=== PATIENT | male | born 1975 | race Caucasian/White ===

== ENCOUNTER 2018-04-05 09:22 | Outpatient (CLI) | payer OTHER ==
[2018-04-05] MEDS ORDERED: BUFFERED LIDOCAINE 10 ML SYRINGE ONE (09:44)
[2018-04-05] MEDS ORDERED: IOTHALAMATE MEGLUMINE 50 ML VIAL ONE (09:44)
[2018-04-05] MEDS ORDERED: GADOPENTETATE DIMEGLUMINE 5 ML VIAL IVP ONE ×2 (09:45→10:52)
[2018-04-05] MEDS ORDERED: IOTHALAMATE MEGLUMINE 50 ML VIAL IVP ONE (10:52)
[2018-04-05] MEDS ORDERED: BUFFERED LIDOCAINE 10 ML SYRINGE IU ONE (10:52)
--- NOTE | 2018-04-05 11:23 | XRAY Report ---
Reason: PAIN IN RIGHT SHOULDER Procedure Date: 04/05/2018 Accession Number: [id number] / [id number] Procedure: FL - Arthrogram Needle Placement CPT Code: FULL RESULT: EXAM: RIGHT SHOULDER ARTHROGRAPHIC INJECTION WITH FLUOROSCOPIC GUIDANCE EXAM DATE: 04/05/2018 10:38 AM. CLINICAL HISTORY: Pain in right shoulder. COMPARISON: None. TECHNIQUE: The risks, benefits, and alternatives of the procedure were discussed with the patient. All questions were answered. Written and verbal consent were obtained. The glenohumeral joint was marked under fluoroscopy and prepped and draped in a sterile manner. Local anesthesia was performed with 1% lidocaine. A 22-gauge needle was then inserted into the glenohumeral joint. 10 mL of a solution containing 25% 1% lidocaine, 25% iodinated contrast, and a 1:200 dilution of gadolinium contrast in sterile saline was then injected. The needle was removed without immediate complication. Other: None. Fluoroscopy Time: 0.2 minutes. Number of Images: 1. FINDINGS: Bones and joints: No fracture or subluxation. Injection: Fluoroscopic images demonstrate needle placement and contrast in the glenohumeral joint. Contrast is seen pooling in the region of the coracoid process. IMPRESSION: Successful fluoroscopically guided arthrographic injection of the shoulder. [facility]
--- NOTE | 2018-04-05 15:49 | MRI Report ---
Reason: PAIN IN RIGHT SHOULDER Procedure Date: 04/05/2018 Accession Number: [id number] / [id number] Procedure: MRI - Arthrogram Shoulder RT CPT Code: FULL RESULT: EXAM: RIGHT SHOULDER MRI ARTHROGRAM WITH CONTRAST EXAM DATE: 04/05/2018 10:37 AM. CLINICAL HISTORY: Pain in right shoulder. COMPARISON: Arthrogram needle placement 04/05/2018 10:35 AM. TECHNIQUE: Multiplanar, multisequence T1-weighted and fluid-sensitive sequences of the shoulder after an arthrographic injection of dilute gadolinium, dictated under a separate exam. Other: None. FINDINGS: Acromioclavicular Region: The acromion is type II. Mild degenerative changes acromioclavicular joint. The coracoacromial and coracoclavicular ligaments are intact. There is no contrast or fluid in the subacromial/subdeltoid bursa. Glenohumeral Region: No subluxation. No loose bodies. The articular cartilage is unremarkable. The glenohumeral ligaments and joint capsule are unremarkable. Bone Marrow: Cystic degenerative changes posterior aspect greater tuberosity. Labrum: Superior labrum tear with posterior extension and posterior superior labrum paralabral contrast cysts. Biceps Tendon: The long head of the biceps tendon and biceps paxton are intact. Musculature/Rotator Cuff: Focal globular calcification distal supraspinous tendon 1.3 cm x 1.0 cm consistent with supraspinatus calcific tendinosis. Negative for infraspinatus tendon tear. Negative for subscapularis tendon tear. The supraspinatus tendon is negative for contrast signal defect. Other: The subcutaneous tissues are unremarkable. IMPRESSION: 1. Negative for rotator cuff tear. 2. Distal supraspinatus calcific tendinosis. 3. Superior and posterior superior labrum tear. [facility] MUSCULOSKELETAL RADIOLOGY SECTION
== END 2018-04-05 09:23 | disposition home or self-care (01) ==
LOC: DI 09:22
PROVIDERS: ATTEND Orthopaedic Surgery
DX: S43.491A Other sprain of right shoulder joint, initial encounter (principal); M25.811 Other specified joint disorders, right shoulder
CPT/HCPCS: 23350; 73222; 77002; Q9961

== ENCOUNTER 2018-05-20 09:11 | Day surgery (SDC) | payer OTHER ==
[2018-05-20] MEDS ORDERED: cefTRIAXone 2 GM VIAL ONE (09:22)
[2018-05-20] MEDS ORDERED: EPINEPHrine 1 MG/ML AMP ONE (09:34)
[2018-05-20] MEDS ORDERED: BUPIVACAINE 0.25%-EPI 1:200000 PF 30 ML VIAL ONE (09:34)
[2018-05-20] MEDS ORDERED: LACTATED RINGERS 1,000 ML IV ONE ×2 (09:40→12:34)
--- NOTE | 2018-05-20 11:05 | ANESTHESIA ---
Pre-Anesthesia VS, & Labs - Diagnosis Right shoulder biceps tendinitis, SLAP tear - Procedure Right shoulder arthroscopy subacromial decompression biceps tenodesis, rotator cuff debridement vs repair Vital Signs: Temp Pulse Resp BP Pulse Ox 37.0 C 79 18 143/79 H 96 05/20/18 09:31 05/20/18 09:31 05/20/18 09:31 05/20/18 09:31 05/20/18 09:31 Height 5 ft 8 in Weight (kg) 95 kg - NPO >8 hours Home Medications and Allergies Home Medications: Ambulatory Orders raNITIdine [Zantac] 150 mg PO DAILY 05/19/18 Acetaminophen [Tylenol] 05/20/18 Celecoxib [Celebrex] 200 mg PO 05/20/18 Docusate Sodium 250Mg Capsule [Colace 250Mg Capsule] 05/20/18 Ibuprofen [Motrin] 800 mg PO Q8H PRN 05/20/18 raNITIdine [Zantac] 150 mg PO DAILY 05/19/18 Acetaminophen [Tylenol] 05/20/18 Celecoxib [Celebrex] 200 mg PO 05/20/18 Docusate Sodium 250Mg Capsule [Colace 250Mg Capsule] 05/20/18 Ibuprofen [Motrin] 800 mg PO Q8H PRN 05/20/18 Allergies/Adverse Reactions: Allergies Allergy/AdvReac Type Severity Reaction Status Date / Time No Known Drug Allergies Allergy Verified 05/19/18 09:54 Anes History & Medical History - Anesthetic History Anesthesia Complications: reports: No previous complications - Medical History Cardiovascular: reports: None Pulmonary: reports: None Gastrointestinal: reports: GERD (occasional with spicy food, controlled with meds), Chronic constipation Urinary: reports: None Neuro: reports: None Musculoskeletal: reports: Other Endocrine/Autoimmune: reports: None Blood Disorders: reports: None Skin: reports: None Smoking Status: Former smoker - Surgical History General: Other (vasectomy reversal) Exam General: Alert, Oriented x3, Cooperative, No acute distress Dental: WNL Mouth Openin Fingerbreadth Neck Mobility: Normal Mallampati classification: II Thyromental Distance: 4-6 cm Mental/Cognitive Status: Alert/Oriented X3, Normal for patient Plan Anesthesia Type: General, Interscalene Block (right) Consent for Procedure(s) Verified and Reviewed: Yes Code Status: Attempt Resuscitation ASA classification: 2-Mild systemic disease Is this case an emergency?: No
[2018-05-20] MEDS ORDERED: fentaNYL 100 MCG/2 ML VIAL ONE (11:18)
[2018-05-20] MEDS ORDERED: MIDAZOLAM 2 MG/2 ML VIAL ONE (11:18)
[2018-05-20] MEDS ORDERED: BUPIVACAINE 0.25% PF 10 ML VIAL ONE (12:16)
[2018-05-20] MEDS ORDERED: BUPIVACAINE 0.25% PF 10 ML VIAL SUBQ ONE ×2 (12:22)
[2018-05-20] MEDS ORDERED: ROPIVACAINE 0.5% PF 20 ML AMPULE EP ONE (12:24)
[2018-05-20] MEDS ORDERED: KETOROLAC 30 MG/ML VIAL IVP ONE (12:24)
[2018-05-20] MEDS ORDERED: PROPOFOL 200 MG/20 ML VIAL IVP ONE (12:24)
[2018-05-20] MEDS ORDERED: NEOSTIGMINE 1 MG/1 ML 10 ML MDV IVP ONE (12:24)
[2018-05-20] MEDS ORDERED: fentaNYL 100 MCG/2 ML VIAL IVP ONE (12:24)
[2018-05-20] MEDS ORDERED: GLUCAGON 1 MG/ML VIAL IM ONE (12:24)
[2018-05-20] MEDS ORDERED: DEXAMETHASONE 4 MG/ML VIAL IVP ONE (12:24)
[2018-05-20] MEDS ORDERED: ONDANSETRON 4 MG/2 ML VIAL IVP ONE (12:24)
[2018-05-20] MEDS ORDERED: ePHEDrine 50 MG/ML VIAL IVP ONE (12:24)
[2018-05-20] MEDS ORDERED: ONDANSETRON 4 MG/2 ML VIAL IVP PRN (14:29)
--- NOTE | 2018-05-20 14:35 | OPERATIVE REPORT ---
Operative Report - General Procedure Date: 05/20/18 Planned Procedure: Right shoulder arthroscopy, open subpectoral biceps tenodesis Pre-Op Diagnosis: Right shoulder SLAP tear, biceps tendinitis Procedure Performed: Right shoulder arthroscopy, open subpectoral biceps tenodesis Post Op Diagnosis: Shoulder SLAP tear biceps tendinitis - Procedure Note Primary Surgeon: MAGED CHANDLER Secondary Surgeon: BRAYDON MARCIAL Anesthesia Technique: General ET tube, Regional block Estimated Blood Loss (mL): 15 Complications: None - Other Other Information/Narrative: DIAGNOSTIC SHOULDER SCOPE - BEACH CHAIR DETAILED PROCEDURE: Right shoulder arthroscopy, open subpectoral biceps tenodesis IMPLANTS: Arthrex fiber tack POSTOPERATIVE PLAN: 0-2 weeks-Sling at all times. Pendulum exercises 5 times per day. 2-6 weeks-Shoulder passive and active range of motion without limitations. No active flexion of the elbow or supination of the wrist, no activation of the biceps 6-8 weeks-Discontinue sling, start active motion of the biceps, okay for light resistance band training. 8-12 weeks-okay to start strengthening the biceps, continue strengthening the shoulder focusing on rotator cuff and scapular stabilizers per protocol. 16 weeks and beyond-Introduce dynamic activities. EXAMINATION UNDER ANESTHESIA: ROM: Forward flexion 180 degrees, abduction 60 degrees Anterior load and shift: 1+ Posterior load and shift: 1+ Inferior sulcus: Negative ARTHROSCOPIC FINDINGS: Rotator interval: Mild fraying at the medial sling Biceps tendon & SLAP: Type II SLAP tear, synovitis of the biceps tendon Subscapularis: Intact Rotator Cuff: Intact HAGL: No Labrum: SLAP tear as above Glenoid Cartilage: Grade 1 and 2 changes superiorly, posterior inferiorly Humeral Head Cartilage: Grade 2 and 3 changes posterior superiorly INDICATION FOR SURGERY: The 43-year-old [id number] male with a long- standing history of right shoulder pain that may become worse recently. He reports that it started approximately 5 years ago after playing [employer], he feels that he reinjured the shoulder last June while snowboarding. He underwent an ultrasound-guided injection of the biceps tendon which provided good but temporary relief of the symptoms. Nonoperative managment failed to resolve symptoms. The risks, benefits, and alternatives were discussed. Risks included pain, bleeding, infection, damage to nearby structures, lack of symptom relief, implant complications, stiffness, need for further surgeries, DVT, PE, stroke, and even . He signed a written consent form. PROCEDURE IN DETAIL: The patient was met in the preoperative holding on the day of the procedure. Operative extremity was signed. Consent was verified. They desired to proceed. Regional anesthesia was obtained in the preoperative area. They were brought to the operating room and surrendered to anesthesia. Once general anesthesia was obtained they were placed in the beach chair position. A padded kidney pad was placed. The head was secured with the neck in a neutral position. A surgical timeout was held to confirm the patient procedure, identity, procedure, laterality, allergies, images, and antibiotics. All were in agreement we proceeded. A standard diagnostic arthroscopy was performed utilizing posterior and anterosuperior portals. The anterosuperior portal was created under direct visualization and localized with a spinal needle. The 7 mm cannula was placed anteriorly. The findings of the diagnostic arthroscopy can be found above. MINI OPEN BICEPS TENODESIS: A 5 cm incision was made near the axillary fold centered over the pectoralis major tendon. Electrocautery was used to obtain hemostasis. The fascia was opened with dissection scissors. Blunt digital dissection was used to identify the intertubercular groove just under the pector suleiman major tendon. The long head of the biceps tendon was visualized within this interval. The short head of the biceps was retracted with my finger and the right angle was used to deliver the tendon of the long head of the biceps out of the wound. A davidson elevator was then used to debride all synovial tissue from the intertubercular groove. A fibertack was placed high within the groove. Both limbs of the fibertack were pulled on and it was well fixed. I then whipstitched the biceps tendon starting 2 cm proximal to the musculotendinous junction down to the musculotendinous junction and back up to the same 2 cm location with a single limb of the suture tack. The other suture was placed once through the tendon at the 2 cm location. I then cut all excess tendon off. The suture limb that was passed the single time was then pulled on and this reduced the tendon nicely into the groove. The elbow was fully straightened and there was no excess tension on the repair site. I then tied 7 reverse half hitches alternating to secure the tendon in its place. The wound was then irrigated copiously. The portal sites were then closed with 3-0 Monocryl buried. Open incisions were closed with 2-0 Vicryl in the dermis and a running 3-0 Monocryl in the skin. Mastisol and Steri-Strips were applied. 15 mL of quarter percent Marcaine plain were injected along the biceps tenodesis incision. A sterile dressing and a sling was applied. A sling was placed. The patient was awakened and transferred to the recovery room.
[2018-05-20] MEDS ORDERED: ONDANSETRON 4 MG/2 ML VIAL ONE (15:04)
--- NOTE | 2018-05-20 16:29 | ANESTHESIA PROCEDURE NOTE ---
Consent for Procedure(s) Verified and Reviewed: Yes Height and Weight: Height 5 ft 8 in Weight (kg) 95 kg Vital Signs: Temp Pulse Resp BP Pulse Ox 36.2 C L 114 H 18 129/67 99 05/20/18 15:57 05/20/18 15:57 05/20/18 15:57 05/20/18 15:57 05/20/18 15:57 Allergies No Known Drug Allergies Allergy (Verified 05/19/18 09:54) Requesting Provider: Dr. Palencia Location: Right ISB ASA classification: 2-Mild systemic disease Anes. Monitoring and Equipment: Non-invasive BP, Pulse oximetery Anes. Procedure Start Time: 11:20 Anes. Procedure Stop Time: 11:31 Procedure Notes: Informed consent obtained. Right ISB requested by Dr. Palencia for post op pain control. Patient was given a total of 100mcg fentanyl and 2mg versed for comfort. Meaningful contact remained throughout procedure. Patient's right neck was prepped and time out procedure completed. The right brachial plexus was identified under ultrasound and a 22G blunt stimiplex needle was inserted and directed toward the nerve bundle. A total of 30 ml of 0.5% ropivicaine plus 6mg decadron was injected around nerve bundle with adequate spread noted. Patient tolerated procedure well. Full evaluation is pending.
[2018-05-20 16:43] LABS: CALCIUM 8.9 mg/dL (8.5-10.3)
[2018-05-20] MEDS: oxyCODONE 5 MG TABLET PO PRN ×2 (16:51→20:25)
[2018-05-20] MEDS ORDERED: MORPHINE 2 MG/ML CARPUJECT IVP PRN (16:52)
[2018-05-20] MEDS ORDERED: oxyCODONE 5 MG TABLET ONE (16:54)
[2018-05-20] MEDS ORDERED: NITROGLYCERIN SL 0.4 MG TABLET SL PRN (17:10)
[2018-05-20] MEDS ORDERED: NITROGLYCERIN SL 0.4 MG TABLET SL ONE (17:16)
[2018-05-20] MEDS: ASPIRIN CHEW 81 MG TABLET PO ONE ×2 (17:18→18:55)
[2018-05-20] MEDS ORDERED: ASPIRIN CHEW 81 MG TABLET ONE (17:18)
--- NOTE | 2018-05-20 17:44 | XRAY Report ---
Reason: chest pain, r/o pneumothorax Procedure Date: 05/20/2018 Accession Number: [id number] / [id number] Procedure: XR - Chest 1 View X-Ray CPT Code: 07651 FULL RESULT: EXAM: CHEST RADIOGRAPHY EXAM DATE: 05/20/2018 04:58 PM. CLINICAL HISTORY: Chest pain, r/o pneumothorax. COMPARISON: None. TECHNIQUE: 1 view. FINDINGS: Lungs/Pleura: No dense consolidation. No large effusion or pneumothorax. No pulmonary edema. Low lung volumes. Elevation of the right hemidiaphragm with mild right base atelectasis. Mediastinum: Heart and mediastinal contours are unremarkable. Other: None. IMPRESSION: No acute radiographic pulmonary abnormalities. [facility]
--- NOTE | 2018-05-20 18:07 | CONSULTATION NOTE ---
Referring Provider Name of Referring Provider:: Dr. Cade Hugo Consult Date: 05/20/18 Chief Complaint - Chief Complaint Chief Complaint: chest pain History of Present Illness - Admitted From Admitted From:: SDS - History Obtained From Records Reviewed: Yes History obtained from: Patient, EMR Exam Limitations: None - History of Present Illness HPI Comment/Other: Lavell Oleary is a 43 year old male with PMH significant for GERD in which he does not take daily medication for, chronic constipation, and right shoulder pain since 2012. Today, he underwent a right shoulder arthroscopy with open subpectoral bicep tenodesis with Dr. Cade Arita. Operation was uneventful. Post-operatively the patient is tachycardic in 110s and complaining of chest pain with breathing. The pain is over his left breast. It does not radiate. He is unable to describe the feeling of the pain, only that it is 'hard to breathe when I inhale'. He reports this discomfort as a 5/10, and states that he is unable to take a deep breath because of the pain. It does not feel like his previous symptoms of GERD. When his left breast is touched, it only mildly reproduces the pain. The pain increases when he coughs. EKG was obtained with left axis deviation and without ischemic changes. Troponin <0.04. TSH and Mg wnl. CXR negative for PTX. He was given nitro, morphine and a full dose aspirin. Upon my examination, he continues to complain of discomfort with breathing. He was unable to tell me if the nitro or aspirin relieved his chest discomfort. He does not have any cardiac history. No history of HTN, hyperlipidemia, or DM. He does not have a family history of heart disease that he is aware of. History - Past Medical History Cardiovascular: reports: None Respiratory: reports: None Neuro: reports: None Endocrine/Autoimmune: reports: None GI: reports: GERD (occasional with spicy food, controlled with meds), Chronic constipation : reports: None HEENT: reports: None Psych: reports: None Musculoskeletal: reports: Other Derm: reports: None MRSA Hx?: No - Past Surgical History General: reports: Other (vasectomy reversal) - Substance History Use: Uses substance without health or social issues: NONE Meds/Allgy - Home Medications Home Medications: Ambulatory Orders Medication Instructions Recorded Confirmed raNITIdine [Zantac] 150 mg PO DAILY 05/19/18 05/20/18 Acetaminophen [Tylenol] 05/20/18 Celecoxib [Celebrex] 200 mg PO 05/20/18 05/20/18 Docusate Sodium 250Mg Capsule 05/20/18 [Colace 250Mg Capsule] Ibuprofen [Motrin] 800 mg PO Q8H PRN 05/20/18 05/20/18 - Allergies Allergies/Adverse Reactions: Allergies Allergy/AdvReac Type Severity Reaction Status Date / Time No Known Drug Allergies Allergy Verified 05/19/18 09:54 Review of Systems - Constitutional Constitutional: denies: Fatigue, Fever, Chills - Cardiovascular Cariovascular: reports: Chest pain. denies: Irregular heart rate, Palpitations, Syncope, Exertional dyspnea, Orthopnea - Respiratory Respiratory: reports: SOB at rest (shortness of breath with inspiration), Pleuritic pain. denies: Cough - Gastrointestinal Gastrointestinal: denies: Diarrhea, Nausea, Vomiting - All Other Systems All Other Systems: reports: Reviewed and negative Exam - Vital Signs Vital Signs: Vital Signs x48h Temp Pulse Resp BP Pulse Ox 05/20/18 17:28 122 H 21 128/66 93 05/20/18 17:15 36.8 C 114 H 20 134/72 H 95 05/20/18 16:59 36.7 C 114 H 23 134/72 H 95 05/20/18 16:28 36.5 C 112 H 21 132/80 H 96 05/20/18 15:57 36.2 C L 114 H 18 129/67 99 05/20/18 15:29 105 H 17 134/68 H 94 05/20/18 15:00 36.2 C L 95 14 142/75 H 93 05/20/18 14:45 37.0 C 92 18 128/66 94 05/20/18 14:32 36.8 C 81 13 126/70 91 L 05/20/18 14:30 36.0 C L 100 18 132/78 H 95 05/20/18 14:25 36.0 C L 96 14 136/74 H 93 05/20/18 14:20 80 16 139/74 H 93 05/20/18 14:15 77 14 141/78 H 93 05/20/18 14:10 36.0 C L 96 18 146/84 H 95 05/20/18 14:05 65 14 128/69 99 05/20/18 14:00 66 15 129/71 99 05/20/18 13:55 36.1 C L 65 16 124/68 99 05/20/18 13:50 70 17 143/92 H 100 05/20/18 13:48 36.4 C L 79 17 148/84 H 99 - Physical Exam General Appearance: positive: No acute distress, Alert Eyes Bilateral: positive: Normal inspection, PERRL, EOMI ENT: positive: ENT inspection nml, No signs of dehydration Neck: positive: Nml inspection, Trachea midline Respiratory: positive: No respiratory distress, Breath sounds nml, Other (mild tenderness to palpation left chest) Cardiovascular: positive: No murmur, No gallop, Tachycardia Peripheral Pulses: positive: 2+ Abdomen: positive: Non-tender, No organomegaly, Nml bowel sounds, No distention Skin: positive: Warm, Dry Extremities: positive: Nml appearance, Other (right arm in bandage/sling) Neurologic/Psychiatric: positive: Oriented x3, CN's nml (2-12), Motor nml, Sensation nml, Mood/affect nml Conclusion/Plan - Diagnosis Diagnosis: atypical chest pain - Plan Plan: Patient presents with atypical chest pain. His EKG and first set of troponins are negative. He does not have cardiac risk factors or family history of cardiac disease, making ACS less likely. DDx: pleuritic chest pain, GERD, post-op atelectasis, aspiration pneumonitis related to intubation, costochondritis, pain related to drug induced tachycardia, and pulmonary embolism. Pain is mildly reproducible to palpation. Pain occurs with inspiration. On room air. Denies cough. Recommendations: Obtain another troponin level at 1930 Incentive spirometer for atelectasis seen on x-ray Flexeril and ibuprofen for pleuritic pain (orders have been placed) If pain unrelieved with the above or patient becomes hypoxic, recommend obtaining CTPE to r/o PE. These recommendations were discussed with Dr. Cade Arita. Thank you for this consult. We will sign off. Please re-consult as needed. - Lab Results Lab results reviewed: Yes Fish Bones: 05/20/18 16:28 Other Lab Results: Laboratory Tests 05/20/18 05/20/18 05/20/18 16:28 16:28 16:28 Sodium 138 Potassium 3.9 Chloride 105 Carbon Dioxide 24 Anion Gap 9.0 BUN 16 Creatinine 1.0 Estimated GFR (MDRD) 81 L Glucose 119 H Calcium 8.9 Magnesium 1.9 Troponin I < 0.04 TSH 05/20/18 16:28 Sodium Potassium Chloride Carbon Dioxide Anion Gap BUN Creatinine Estimated GFR (MDRD) Glucose Calcium Magnesium Troponin I TSH 1.02 - Diagnostic Imaging Results Diagnostic Imaging Results: positive: Final report reviewed Diagnostic Imaging Results Comments: CXR -- No acute radiographic pulmonary abnormalities - EKG Results EKG Interpreted Independently: Yes EKG Comparison: Old EKG unavailable EKG Findings: Sinus tachycardia with left axis deviation
[2018-05-20 20:35] LABS: CALCIUM 8.9 mg/dL (8.5-10.3)
[2018-05-20] MEDS: CYCLOBENZAPRINE 10 MG TABLET PO PRN (20:38)
[2018-05-20 20:56] LABS: BASOPHILS # (AUTO) 0.1 10^3/uL (0.0-0.1); BASOPHILS % (AUTO) 0.4 %; EOSINOPHILS % (AUTO) 0.1 %; HGB - HEMOGLOBIN 14.6 g/dL (14.0-18.0); LYMPHOCYTES # (AUTO) 0.9 10^3/uL (1.5-3.5); LYMPHOCYTES % (AUTO) 7.3 %; MEAN CORPUSCULAR HEMOGLOBIN 29.9 pg (27.0-31.0); MEAN CORPUSCULAR HGB CONC 33.4 g/dL (32.0-36.0); MEAN CORPUSCULAR VOLUME 89.4 fL (80.0-94.0); MEAN PLATELET VOLUME 7.7 fL (7.4-11.4); MONOCYTES # (AUTO) 0.6 10^3/uL (0.0-1.0); NEUTROPHILS # (AUTO) 10.4 10^3/uL (1.5-6.6); NEUTROPHILS % (AUTO) 87.2 %; PLT - PLATELET COUNT 240 10^3/uL (130-450); RED BLOOD COUNT 4.89 10^6/uL (4.70-6.10); RED CELL DISTRIBUTION WIDTH 14.1 % (12.0-15.0); WHITE BLOOD COUNT 11.9 x10^3/uL (4.8-10.8)
[2018-05-20] MEDS: ACETAMINOPHEN 325 MG TABLET PO SCH (21:35)
[2018-05-20] MEDS: IBUPROFEN 600 MG TABLET PO SCH (21:36)
[2018-05-20] MEDS ORDERED: SODIUM CHLORIDE 0.9% 1,000 ML IV SCH (23:45)
--- NOTE | 2018-05-20 23:54 | PROVIDER PROGRESS NOTE ---
Medical Manager Note - Medical Manager Note Medical Manager Note: The Orthopedic doctor called me and we discussed his case: He was given NSAIDs for pleuritic CP. His troponins have been non-detectable x2 and EKG showed no acute ischemia. BP has dropped to 99 systolic (but he got narcotics) and he has been persistently tachycardic this evening, despite fairly good pain control. He had not urinated til just recently. Imp: Probable volume depletion R/O PE Plan: Will start iv fluids Will obtain a CTA of chest to R/O PE
[2018-05-21] MEDS ORDERED: SODIUM CHLORIDE FLUSH 0.9% 10 ML SYRINGE ONE (00:45)
[2018-05-21] MEDS: oxyCODONE 5 MG TABLET PO PRN ×2 (00:45→06:55)
[2018-05-21] MEDS: ACETAMINOPHEN 325 MG TABLET PO SCH ×3 (00:45→09:19)
[2018-05-21] MEDS ORDERED: IOPAMIDOL-300 100 ML VIAL ONE (01:22)
[2018-05-21] MEDS ORDERED: IOPAMIDOL-300 100 ML VIAL IVP ONE (01:45)
--- NOTE | 2018-05-21 02:08 | CT Report ---
Reason: pleuritic CP, tachy, eval for PE Procedure Date: 05/21/2018 Accession Number: [id number] / [id number] Procedure: CT - ANGIO CHEST W/WO CPT Code: FULL RESULT: EXAM: CT ANGIOGRAM CHEST EXAM DATE: 05/21/2018 01:48 AM. CLINICAL HISTORY: Pleuritic chest pain. Tachycardia. COMPARISON: None. TECHNIQUE: Routine helical imaging was performed through the chest in the pulmonary arterial phase. IV Contrast: ISOVUE 300 80mL. Reconstructions: Coronal 3-D MIP reconstructions.Sagittal and coronal. In accordance with CT protocol optimization, one or more of the following dose reduction techniques were utilized for this exam: automated exposure control, adjustment of mA and/or KV based on patient size, or use of iterative reconstructive technique. FINDINGS: Pulmonary Arteries: Diagnostic quality: Suboptimal through the segmental arteries. There is moderate enhancement of the pulmonary arteries. Some images are degraded due to motion artifact. No obvious pulmonary emboli are seen. No evidence of right heart strain. Lungs/Pleura: Elevated right hemidiaphragm. Moderate atelectasis or consolidation in the right lower lobe. Mild atelectasis at the left base. No pleural effusion seen. No pneumothorax. Mediastinum: Heart size upper normal. No lymphadenopathy is seen. Thoracic Aorta: No aneurysm or dissection. Upper Abdomen: Fatty liver. Upper normal size of the spleen. Other: None. IMPRESSION: 1. Mildly suboptimal assessment of the pulmonary arteries due to technical factors. No obvious pulmonary emboli. 2. Elevated right hemidiaphragm with moderate atelectasis or consolidation in the right lower lobe. Mild atelectasis at the left base. 3. Heart size upper normal. 4. Fatty liver with borderline size of the spleen. [facility]
[2018-05-21] MEDS: IBUPROFEN 600 MG TABLET PO SCH (06:55)
[2018-05-21 07:05] VITALS: BP 119/63
[2018-05-21 07:06] LABS: BASOPHILS # (AUTO) 0.1 10^3/uL (0.0-0.1); BASOPHILS % (AUTO) 0.6 %; EOSINOPHILS % (AUTO) 0.3 %; HGB - HEMOGLOBIN 13.2 g/dL (14.0-18.0); LYMPHOCYTES # (AUTO) 1.9 10^3/uL (1.5-3.5); MEAN CORPUSCULAR HGB CONC 33.4 g/dL (32.0-36.0); MEAN CORPUSCULAR VOLUME 89.9 fL (80.0-94.0); MEAN PLATELET VOLUME 7.3 fL (7.4-11.4); MONOCYTES # (AUTO) 0.9 10^3/uL (0.0-1.0); MONOCYTES % (AUTO) 8.6 %; NEUTROPHILS # (AUTO) 7.6 10^3/uL (1.5-6.6); NEUTROPHILS % (AUTO) 72.5 %; PLT - PLATELET COUNT 226 10^3/uL (130-450); RED BLOOD COUNT 4.38 10^6/uL (4.70-6.10); RED CELL DISTRIBUTION WIDTH 14.3 % (12.0-15.0); WHITE BLOOD COUNT 10.5 x10^3/uL (4.8-10.8)
--- NOTE | 2018-05-21 08:44 | PROVIDER PROGRESS NOTE ---
Subjective - Prog Note Date Prog Note Date: 05/21/18 Prog Note Time: 08:41 - Subjective Pt reports feeling: Improved Subjective: 43-year-old [id number] male one day status post right shoulder arthroscopy and open subpectoral biceps tenodesis. Postoperative course, gated by onset of chest pain while in recovery. EKG with nonspecific changes. Further cardiac workup including a sterile to troponin x2, as well as a CT PE protocol was negative for thrombus, aortic dissection, pericardial effusion, or tamponade. There was some elevation of the right hemidiphragm and atelectasis. Pain is improved overnight with less pain on inspiration. Right shoulder pain is well controlled, block still in effect although wearing off with return of some sensation and motor function to the distal right upper extremity. He denies fever or chills. Current Medications - Current Medications Current Medications: Oxycodone, acetaminophen, Flexeril, Motrin, Pepcid Objective - Vital Signs/Intake & Output Vital Signs: Vital Signs x48h Temp Pulse Pulse Resp BP BP Pulse Ox 05/21/18 07:03 36.8 C 90 16 119/63 96 05/21/18 04:32 36.9 C 106 H 20 118/61 96 05/21/18 00:47 36.5 C 103 H 16 105/56 L 95 Intake & Output: Intake & Output 05/18/18 05/19/18 05/20/18 05/21/18 23:59 23:59 23:59 23:59 Intake Total 1400 Output Total 15 Balance 1385 - Objective General Appearance: positive: No acute distress, Alert Eyes Bilateral: positive: Normal inspection Neck: positive: Nml inspection Respiratory: positive: Chest non-tender (Less tenderness with palpation at the left sternal costal junction than on previous exam), No respiratory distress Peripheral Pulses: 2+ Radial (R) Abdomen: positive: Non-tender Extremities: positive: Other (Right upper extremity in sling with postoperative dressing applied, dressing is intact without strikethrough. Motor function to EPL FPL and intrinsics, returning sensation in median radial and ulnar distribution. Palpable radial pulse capillary refill less than 2 seconds.) Neurologic/Psychiatric: positive: Oriented x3, Mood/affect nml. negative: Slurred/abnml speech, Depressed mood/affect - Lab Results Fish Bones: 05/21/18 07:00 05/20/18 20:26 Other Labs: Lab Results x24hrs 05/21/18 05/20/18 05/20/18 Range/Units 07:00 20:50 20:26 WBC 10.5 11.9 H (4.8-10.8) x10^3/uL RBC 4.38 L 4.89 (4.70-6.10) 10^6/uL Hgb 13.2 L 14.6 (14.0-18.0) g/dL Hct 39.4 L 43.7 (42.0-52.0) % MCV 89.9 89.4 (80.0-94.0) fL MCH 30.0 29.9 (27.0-31.0) pg MCHC 33.4 33.4 (32.0-36.0) g/dL RDW 14.3 14.1 (12.0-15.0) % Plt Count 226 240 (130-450) 10^3/uL MPV 7.3 L 7.7 (7.4-11.4) fL Neut # (Auto) 7.6 H 10.4 H (1.5-6.6) 10^3/uL Lymph # (Auto) 1.9 0.9 L (1.5-3.5) 10^3/uL Placer # (Auto) 0.9 0.6 (0.0-1.0) 10^3/uL Eos # (Auto) 0.0 0.0 (0.0-0.7) 10^3/uL Baso # (Auto) 0.1 0.1 (0.0-0.1) 10^3/uL Absolute Nucleated RBC 0.00 0.01 x10^3/uL Nucleated RBC % 0.0 0.1 /100WBC Sodium 137 (135-145) mmol/L Potassium 4.2 (3.5-5.0) mmol/L Chloride 101 (101-111) mmol/L Carbon Dioxide 25 (21-32) mmol/L Anion Gap 11.0 (6-13) BUN 14 (6-20) mg/dL Creatinine 1.0 (0.6-1.2) mg/dL Estimated GFR (MDRD) 81 L (>89) Glucose 124 H (70-100) mg/dL Calcium 8.9 (8.5-10.3) mg/dL Magnesium (1.7-2.8) mg/dL Troponin I (<0.49) ng/mL TSH (0.34-5.60) uIU/mL 05/20/18 05/20/18 05/20/18 Range/Units 19:10 16:28 16:28 WBC (4.8-10.8) x10^3/uL RBC (4.70-6.10) 10^6/uL Hgb (14.0-18.0) g/dL Hct (42.0-52.0) % MCV (80.0-94.0) fL MCH (27.0-31.0) pg MCHC (32.0-36.0) g/dL RDW (12.0-15.0) % Plt Count (130-450) 10^3/uL MPV (7.4-11.4) fL Neut # (Auto) (1.5-6.6) 10^3/uL Lymph # (Auto) (1.5-3.5) 10^3/uL Placer # (Auto) (0.0-1.0) 10^3/uL Eos # (Auto) (0.0-0.7) 10^3/uL Baso # (Auto) (0.0-0.1) 10^3/uL Absolute Nucleated RBC x10^3/uL Nucleated RBC % /100WBC Sodium (135-145) mmol/L Potassium (3.5-5.0) mmol/L Chloride (101-111) mmol/L Carbon Dioxide (21-32) mmol/L Anion Gap (6-13) BUN (6-20) mg/dL Creatinine (0.6-1.2) mg/dL Estimated GFR (MDRD) (>89) Glucose (70-100) mg/dL Calcium (8.5-10.3) mg/dL Magnesium 1.9 (1.7-2.8) mg/dL Troponin I < 0.04 (<0.49) ng/mL TSH 1.02 (0.34-5.60) uIU/mL 05/20/18 05/20/18 Range/Units 16:28 16:28 WBC (4.8-10.8) x10^3/uL RBC (4.70-6.10) 10^6/uL Hgb (14.0-18.0) g/dL Hct (42.0-52.0) % MCV (80.0-94.0) fL MCH (27.0-31.0) pg MCHC (32.0-36.0) g/dL RDW (12.0-15.0) % Plt Count (130-450) 10^3/uL MPV (7.4-11.4) fL Neut # (Auto) (1.5-6.6) 10^3/uL Lymph # (Auto) (1.5-3.5) 10^3/uL Placer # (Auto) (0.0-1.0) 10^3/uL Eos # (Auto) (0.0-0.7) 10^3/uL Baso # (Auto) (0.0-0.1) 10^3/uL Absolute Nucleated RBC x10^3/uL Nucleated RBC % /100WBC Sodium 138 (135-145) mmol/L Potassium 3.9 (3.5-5.0) mmol/L Chloride 105 (101-111) mmol/L Carbon Dioxide 24 (21-32) mmol/L Anion Gap 9.0 (6-13) BUN 16 (6-20) mg/dL Creatinine 1.0 (0.6-1.2) mg/dL Estimated GFR (MDRD) 81 L (>89) Glucose 119 H (70-100) mg/dL Calcium 8.9 (8.5-10.3) mg/dL Magnesium (1.7-2.8) mg/dL Troponin I < 0.04 (<0.49) ng/mL TSH (0.34-5.60) uIU/mL - Diagnostic Imaging Diagnostic Imaging Results: positive: Final report reviewed Assessment/Plan - Problem List (1) Chest pain of unknown etiology Impression: 43-year-old man 1 day postop, with left/sternal chest pain in the immediate postoperative period. Initial workup negative for acute myocardial infarction, pulmonary embolus, pneumothorax, pericardial effusion, tamponade, aortic dissection, or pleural effusion. Imaging suggestive of atelectasis. Overnight his pain has improved, and he is able to take deep breaths. His vital signs have normalized with resolution of the tachycardia. He has remained afebrile. Due to the pain being reproducible with palpation last evening, I suspect muscle spasms as the likely etiology, however I am unable to prove this. It does not appear that his pain is being caused by cardiac sources, nor pulmonary embolism, tamponade, dissection, or new or pneumothorax. Has been evaluated by the hospitalist service, and I discussed his case with them. Based on improvement overnight as well as negative workup, we agreed that he is able to be discharged home with appropriate follow-up. We will continue him on Flexeril as an outpatient for the presumed muscle spasm. He will follow-up with me in clinic on Thursday.
[2018-05-21] MEDS ORDERED: FAMOTIDINE 20 MG TABLET PO SCH (09:00)
[2018-05-21] MEDS: CYCLOBENZAPRINE 10 MG TABLET PO PRN (09:19)
== END 2018-05-21 10:00 | disposition home or self-care (01) ==
LOC: SDS 09:11 → OBS 18:03 → SDS 05-21 10:00
PROVIDERS: ATTEND Orthopaedic Surgery
PROC: 0RJJ4ZZ Inspection of Right Shoulder Joint, Percutaneous Endoscopic Approach (ICD-10-PCS; 2018-05-20)
PROC: 3E0T3BZ Introduction of Anesthetic Agent into Peripheral Nerves and Plexi, Percutaneous Approach (ICD-10-PCS; 2018-05-20)
PROC: 3E0T33Z Introduction of Anti-inflammatory into Peripheral Nerves and Plexi, Percutaneous Approach (ICD-10-PCS; 2018-05-20)
PROC: 0LS10ZZ Reposition Right Shoulder Tendon, Open Approach (ICD-10-PCS; principal; 2018-05-20 10:45)
DX: S43.431A Superior glenoid labrum lesion of right shoulder, initial encounter (principal); M75.21 Bicipital tendinitis, right shoulder; M75.31 Calcific tendinitis of right shoulder; R07.1 Chest pain on breathing; R94.31 Abnormal electrocardiogram [ECG] [EKG]; R00.0 Tachycardia, unspecified; R06.02 Shortness of breath; K21.9 Gastro-esophageal reflux disease without esophagitis; Z79.1 Long term (current) use of non-steroidal anti-inflammatories (NSAID); Z79.899 Other long term (current) drug therapy; Z87.891 Personal history of nicotine dependence
CPT/HCPCS: 23430; 36415; 71045; 71275; 80048; 83735; 84443; 84484; 85025; 93005; A9270; C1713; J7120; Q9967